=== PATIENT | female | born 1945 | race Caucasian/White ===

== ENCOUNTER 2017-01-20 19:39 | Emergency (ER) | payer MEDICARE, MEDICAID ==
--- NOTE | 2017-01-20 23:25 | CT ---
CT OF HEAD NONCONTRAST 01/20/17 CLINICAL HISTORY: Fall, occipital laceration. FINDINGS: There is parenchymal volume loss with mild compensatory dilatation of ventricular system. There is m ild chronic microvascular ischemic disease involving the cerebral white matter. Preferential cerebel lar parenchymal atrophy is present. There is no intracranial hemorrhage, mass effect or midline shif t. Scalp leny of the left occipital scalp are present. IMPRESSION: 1. No acute intracranial hemorrhage or mass effect. 2. Mild chronic ischemic disease. 3. Parenchymal atrophy preferentially involving the cerebellum. Correlate clinically. POS: [facility]
--- NOTE | 2017-01-20 23:27 | CT ---
CERVICAL SPINE CT SCAN WITHOUT IV CONTRAST: 01/20/17 HISTORY: 71-year-old female with neck pain following a fall with occipital laceration. Multilevel spondylosis including C4-C5, C5-C6, and C6-C7. No evidence for acute fracture or facet d islocation. IMPRESSION: No fracture or facet dislocation. Cervical spondylosis. Moderate atrophy in the posterior fossa, sta ble from 03/29/14 study. POS: [facility]
== END 2017-01-20 22:13 ==
LOC: MADERS 19:39
DX: S01.01XA Laceration without foreign body of scalp, initial encounter (principal); E11.9 Type 2 diabetes mellitus without complications; E78.5 Hyperlipidemia, unspecified; I12.9 Hypertensive chronic kidney disease with stage 1 through stage 4 chronic kidney disease, or unspecified chronic kidney disease; N18.3 Chronic kidney disease, stage 3 (moderate); F32.9 Major depressive disorder, single episode, unspecified; F41.9 Anxiety disorder, unspecified; Z79.82 Long term (current) use of aspirin; Z79.899 Other long term (current) drug therapy; W22.8XXA Striking against or struck by other objects, initial encounter
CPT/HCPCS: 12001; 70450; 72125

== ENCOUNTER 2017-07-04 18:13 | Emergency (ER) | payer MEDICARE, MEDICAID ==
[~2017-07-04 18:13] MED LIST: Sodium Chloride 0.9% 1,000 ML BAG ONE
[2017-07-04 18:41] LABS: Bilirubin Negative (Negative); Blood, Urine Large (Negative); Clarity Cloudy (Clear); Glucose, Urine (Dipstick) Negative (Negative); Leukocyte Large (Negative); Nitrite Negative (Negative); Protein, Urine (Dipstick) 100 mg/dL (Neg-Trace); Specific Gravity, Urine 1.025 (1.005-1.030)
[2017-07-04 18:42] LABS: INR-International Normal Ratio 1.4; PTT 40.3 SEC (22.9-36.1); Prothrombin Time 17.3 SEC (12.0-14.7)
--- NOTE | 2017-07-04 18:48 | RAD ---
CHEST ONE VIEW: 07/04/17 HISTORY: Tube placement. COMPARISON: Radiograph from 2014. FINDINGS: There is edema throughout the lungs. Left basilar air space opacity. There is an ovoid calcification projecting over the left hemithorax and abdomen, similar. Endotracheal tube tip at the level of the clavicles in good position. No pneumothorax. The heart size is enlarged. IMPRESSION: 1. Endotracheal tube tip at level of the clavicles in good position. 2. Moderate edema. 3. Left basilar air space opacity may reflect pneumonia, edema or possibly layering effusion. 4. Likely a cannula projecting over the left humeral head. POS: [facility]
[2017-07-04 18:49] LABS: Bacteria/HPF 3+ HPF (None Seen); Crystals/HPF 4+ AMORPH PHOS HPF (Negative); Squamous Epithelial 0-3 HPF (0-3)
--- NOTE | 2017-07-04 18:55 | CT ---
CT BRAIN WITHOUT CONTRAST: 07/04/17 HISTORY: Nonresponsive. COMPARISON: CT brain 01/20/17. FINDINGS: No acute territorial infarct or hemorrhage. No midline shift or mass effect. Mild atrophy. Ventricula r size and extra-axial CSF spaces are similar to the prior examination. Calvarium is intact. The paranasal sinuses and mastoids are relatively clear except for mild mucosal thickening of the mastoids. There is posterior auricular cartilage calcification on the right. IMPRESSION: No acute intracranial abnormality. No significant change. POS: [facility]
[2017-07-04 18:58] LABS: Red Blood Cell (RBC) Count 3.23 mill/uL (4.20-5.40); White Blood Cell (WBC) Count 4.7 thou/uL (4.8-10.8)
[2017-07-04 18:59] LABS: Band 32 % (5-11); Hemoglobin 9.5 g/dL (12.0-16.0); Lymphocytes 6 % (21-51); MDiff Complete? YES; Manual Diff?? YES; Mean Corpuscular HGB CONC 32.5 g/dL (32.0-36.0); Mean Corpuscular Hemoglobin 29.3 pg (27.0-31.0); Mean Corpuscular Volume 90.3 fL (81.0-99.0); Mean Platelet Volume 7.8 fL (7.4-10.4); Neutrophil 33 % (42-75); Platelet Count 160 thou/uL (130-400); RBC Distribution Width 13.1 % (11.5-14.5); Reactive Lymphocytes 24 % (0-10)
[2017-07-04 19:00] LABS: Monocytes 5 % (0-10)
[2017-07-04 19:01] LABS: PLT Morphology Comment Appears Adequate
[2017-07-04 19:02] LABS: Potassium 3.1 mmol/L (3.5-5.1); Sodium 146 mmol/L (136-145)
[2017-07-04 19:03] LABS: ALT (SGPT) 12 U/L (8-55); AST (SGOT) 44 U/L (5-34); Albumin 2.7 g/dL (3.4-4.8); Alkaline Phosphatase 38 U/L (40-150); Anion Gap 17 mmol/L (10-20); BUN (Urea Nitrogen) 45 mg/dL (9.8-20.1); Bilirubin, Total 0.4 mg/dL (0.2-1.2); Calc. Creatinine Clearance 0 mL/min (70-130); Calcium 8.5 mg/dL (7.8-10.44); Carbon Dioxide 19 mmol/L (23-31); Chloride 113 mmol/L (98-107); Estimated GFR-MDRD 28; Globulin 3.2 g/dL (2.4-3.5); Glucose 104 mg/dL (83-110); Protein, Total 5.9 g/dL (5.8-8.1)
[2017-07-04 19:05] LABS: Troponin I 0.038 ng/mL (< 0.028)
[2017-07-04 19:16] LABS: CKMB 7.7 ng/mL (0-6.6)
== END 2017-07-04 19:09 | disposition short-term general hospital (02) ==
LOC: MADERS 18:13
DX: I46.9 Cardiac arrest, cause unspecified (principal); A41.9 Sepsis, unspecified organism; D64.9 Anemia, unspecified; D72.825 Bandemia; E11.22 Type 2 diabetes mellitus with diabetic chronic kidney disease; I13.0 Hypertensive heart and chronic kidney disease with heart failure and stage 1 through stage 4 chronic kidney disease, or unspecified chronic kidney disease; I50.9 Heart failure, unspecified; N18.3 Chronic kidney disease, stage 3 (moderate); N39.0 Urinary tract infection, site not specified; E78.5 Hyperlipidemia, unspecified; F32.9 Major depressive disorder, single episode, unspecified; F41.9 Anxiety disorder, unspecified
CPT/HCPCS: 36415; 51702; 70450; 71045; 80053; 81001; 82553; 83880; 84484; 85025; 85610; 85730; 93005; J7050

== ENCOUNTER 2017-08-15 02:04 | Emergency (ER) | payer MEDICARE, MEDICAID ==
[2017-08-15 03:27] LABS: INR-International Normal Ratio 1.2; PTT 34.2 SEC (22.9-36.1); Prothrombin Time 15.5 SEC (12.0-14.7)
[2017-08-15 03:39] LABS: CKMB 0.7 ng/mL (0-6.6); Troponin I Less than 0.010 ng/mL (< 0.028)
[2017-08-15 03:44] LABS: ALT (SGPT) 7 U/L (8-55); AST (SGOT) 11 U/L (5-34); Albumin 2.6 g/dL (3.4-4.8); Alkaline Phosphatase 52 U/L (40-150); Anion Gap 15 mmol/L (10-20); BUN (Urea Nitrogen) 43 mg/dL (9.8-20.1); Bilirubin, Total Less than 0.2 mg/dL (0.2-1.2); CK (CPK) 12 U/L (29-168); Calc. Creatinine Clearance 0 mL/min (70-130); Calcium 8.3 mg/dL (7.8-10.44); Carbon Dioxide 25 mmol/L (23-31); Chloride 106 mmol/L (98-107); Estimated GFR-MDRD 66; Globulin 3.3 g/dL (2.4-3.5); Glucose 179 mg/dL (83-110); Potassium 4.5 mmol/L (3.5-5.1); Protein, Total 5.9 g/dL (6.0-8.3); Sodium 141 mmol/L (136-145)
[2017-08-15 03:53] LABS: Bilirubin Negative (Negative); Blood, Urine Negative (Negative); Glucose, Urine (Dipstick) Negative (Negative); Leukocyte Small (Negative); Nitrite Positive (Negative); Protein, Urine (Dipstick) Negative (Neg-Trace); Specific Gravity, Urine 1.015 (1.005-1.030); Urobilinogen 0.2 mg/dL (0.2-1.0)
[2017-08-15 03:59] LABS: Bacteria/HPF 4+ HPF (None Seen); Clarity Hazy (Clear); RBC/HPF None Seen HPF (0-3)
[2017-08-15 04:02] LABS: #Basophils 0.1 thou/uL (0.0-0.2); #Eosinphils 0.1 thou/uL (0.0-0.7); #Lymphocytes 1.3 thou/uL (1.20-3.40); #Monocytes 0.4 thou/uL (0.11-0.59); #Neutrophils 5.6 thou/uL (1.40-6.50); %Eosinophils 0.7 % (0.0-10.0); %Lymphocytes 17.9 % (21.0-51.0); %Monocytes 4.7 % (0.0-10.0); %Neutrophils 75.7 % (42.0-75.0); Hemoglobin 6.1 g/dL (12.0-16.0); Mean Corpuscular HGB CONC 32.9 g/dL (32.0-36.0); Mean Corpuscular Hemoglobin 27.5 pg (27.0-31.0); Mean Corpuscular Volume 83.6 fl (81.0-99.0); Mean Platelet Volume 5.2 fL (7.4-10.4); Platelet Count 422 thou/uL (130-400); RBC Distribution Width 14.4 % (11.5-14.5); Red Blood Cell (RBC) Count 2.18 mill/uL (4.20-5.40); White Blood Cell (WBC) Count 7.3 thou/uL (4.8-10.8)
[2017-08-15] MEDS ORDERED: Ciprofloxacin Lactate/D5W 400 mg/200 ml Premix ONE (04:10)
[2017-08-15] MEDS ORDERED: DOPamine 400 MG/D5W 250 ML 250 ML ONE (05:31)
[2017-08-15] MEDS ORDERED: methylPREDNISolone Sod Succ/PF 125 MG/2 ML VIAL ONE (05:31)
[2017-08-15] MEDS ORDERED: Sterile Water 10 ML ONE (05:33)
[2017-08-15] MEDS ORDERED: Sodium Chloride 0.9% 1,000 ML BAG ONE (08:13)
--- NOTE | 2017-08-15 08:50 | RAD ---
PORTABLE CHEST: DATE: 08/15/17. PROVIDED CLINICAL HISTORY: Altered mental status. FINDINGS: Comparison 07/12/17. Cardiac and mediastinal silhouette is within normal limits. No focal consolidat ion evident. The supine nature of the examination limits sensitivity for detection of pleural fluid and pneumothorax. Lucency at the right paramediastinal region likely reflects soft tissue artifact. Repeat upright examination PA and lateral may be useful for further evaluation as indicated. IMPRESSION: As above. POS: [facility]
[2017-08-15 15:40] LABS: Iron 32 ug/dL (50-170); Iron Binding Capacity, Total 266 mcg/dL (265-497)
== END 2017-08-15 08:48 | disposition short-term general hospital (02) ==
LOC: MADERS 02:04
DX: R41.82 Altered mental status, unspecified (principal); D64.9 Anemia, unspecified; E86.0 Dehydration; N39.0 Urinary tract infection, site not specified; I12.9 Hypertensive chronic kidney disease with stage 1 through stage 4 chronic kidney disease, or unspecified chronic kidney disease; E11.22 Type 2 diabetes mellitus with diabetic chronic kidney disease; N18.3 Chronic kidney disease, stage 3 (moderate); F03.90 Unspecified dementia, unspecified severity, without behavioral disturbance, psychotic disturbance, mood disturbance, and anxiety; E78.5 Hyperlipidemia, unspecified; F39 Unspecified mood [affective] disorder; F32.9 Major depressive disorder, single episode, unspecified; F41.9 Anxiety disorder, unspecified
CPT/HCPCS: 36415; 36430; 51702; 71045; 80053; 81001; 82553; 82728; 83540; 83550; 83605; 83880; 84484; 85025; 85610; 85730; 86850; 86900; 86901; 87040; 87077; 87081; 87086; 87186; 87430; 87804; 93005; 94760; 96361; 96365; 96366; 96375; A4216; A4353; J0744; J1265; J2930; J7050; P9016

== ENCOUNTER 2018-02-23 18:28 | Emergency (ER) | payer MEDICARE, OTHER ==
[2018-02-23] MEDS ORDERED: Lidocaine-Prilocaine 2.5% Cream 5 GM TUBE ONE (18:44)
[2018-02-23] MEDS ORDERED: TETANUS AND DIPHTHERIA TOX/PF 0.5 ML DISP.SYRIN ONE (19:31)
--- NOTE | 2018-02-23 20:38 | CT ---
CT OF THE BRAIN WITHOUT CONTRAST: 02/23/18 INDICATION: History of scalp laceration. FINDINGS: There is a scalp laceration involving the posterior midline parietal scalp. No definite acute infarct , hemorrhage or hydrocephalus is evident. There is generalized cerebral and cerebellar atrophy. There is mild chronic small vessel white matter ischemic change. Mastoid air cells are clear. The paranasa l sinuses are clear. The skull is intact. IMPRESSION: 1. No acute intracranial abnormality. 2. Posterior midline parietal scalp laceration. POS: [facility]
[2018-02-23] MEDS ORDERED: Sterile Water Irrigation 250 ML BOT ONE (23:36)
== END 2018-02-23 21:26 ==
LOC: MADERS 18:28
DX: S01.01XA Laceration without foreign body of scalp, initial encounter (principal); E11.9 Type 2 diabetes mellitus without complications; G40.909 Epilepsy, unspecified, not intractable, without status epilepticus; F41.9 Anxiety disorder, unspecified; F32.9 Major depressive disorder, single episode, unspecified; E78.5 Hyperlipidemia, unspecified; I12.9 Hypertensive chronic kidney disease with stage 1 through stage 4 chronic kidney disease, or unspecified chronic kidney disease; N18.3 Chronic kidney disease, stage 3 (moderate); Z79.899 Other long term (current) drug therapy; Z79.4 Long term (current) use of insulin; W22.8XXA Striking against or struck by other objects, initial encounter
CPT/HCPCS: 12001; 70450; 90471

== ENCOUNTER 2019-05-10 11:47 | Emergency (ER) | payer MEDICAID, MEDICARE, OTHER ==
--- NOTE | 2019-05-10 12:14 | RAD ---
EXAM: Single view of the chest HISTORY: Cough COMPARISON: 08/15/2017 FINDINGS: Single view of the chest shows a normal sized cardiomediastinal silhouette. There is no dina dence of consolidation, mass, or pleural effusion. The bones are unremarkable. IMPRESSION: No evidence of acute cardiopulmonary disease
== END 2019-05-10 14:57 ==
LOC: MADERS 11:47
DX: K13.0 Diseases of lips (principal); E78.5 Hyperlipidemia, unspecified; E11.22 Type 2 diabetes mellitus with diabetic chronic kidney disease; I12.9 Hypertensive chronic kidney disease with stage 1 through stage 4 chronic kidney disease, or unspecified chronic kidney disease; N18.3 Chronic kidney disease, stage 3 (moderate); F41.9 Anxiety disorder, unspecified; F32.9 Major depressive disorder, single episode, unspecified; Z79.4 Long term (current) use of insulin; Z79.899 Other long term (current) drug therapy
CPT/HCPCS: 71045

== ENCOUNTER 2019-06-12 10:13 | Emergency (ER) | payer MEDICARE, OTHER ==
--- NOTE | 2019-06-12 10:45 | CT ---
CT HEAD WITHOUT IV CONTRAST COMPARISON: 02/23/2018 HISTORY: Right-sided weakness TECHNIQUE: Axial CT imaging at 5 mm intervals from vertex through skull base without contrast FINDINGS: There is a low-density area seen in the right temporal lobe which may represent a late subacute to ch ronic infarction. Low-density area is also seen within the right anterior frontal lobe predominantly within the white matter most likely related to remote ischemic event.. Again noted is d iminished attenuation in the periventricular white matter which is nonspecific but likely reflective of chronic small vessel ischemic changes. Cerebral and cerebellar volume loss are again no annabella. The ventricular system is normal in size, shape, and position. Mucosal thickening is seen in the ethmoidal air cells bilaterally greater on the left with minimal mu cosal thickening in each sphenoid sinus. Osseous structures appear intact. IMPRESSION: 1. 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 2. Chronic small vessel ischemic changes. 3. Cerebral and cerebellar volume loss..
--- NOTE | 2019-06-12 10:51 | RAD ---
EXAM: CHEST ONE VIEW HISTORY: Altered mental status COMPARISON: 05/10/2019 FINDINGS: Cardiac silhouette is within normal limits for portable technique. There is mild increase in perihila r interstitial densities bilaterally. No consolidation or pleural fluid is seen. Breast calcifications are seen in the thoracic aorta. There is a large rounded calcified lesion overlying th e left upper quadrant which was also seen on prior one view abdomen on 08/16/2017. The osseous structures are intact. IMPRESSION: Mild nonspecific prominence of the perihilar interstitial densities. This may be related to technique . Element of mild pulmonary edema or infectious process cannot be entirely excluded.
[2019-06-12 11:07] LABS: Bilirubin Negative (Negative); Blood, Urine Small (Negative); Clarity Slightly Cloudy (Clear); Glucose, Urine (Dipstick) Negative (Negative); Leukocyte Large (Negative); Nitrite Positive (Negative); Protein, Urine (Dipstick) Trace mg/dL (Neg-Trace); Urobilinogen 0.2 mg/dL (Less than 2)
[2019-06-12 11:23] LABS: #Basophils 0.1 thou/uL (0.0-0.2); #Lymphocytes 1.5 thou/uL (1.20-3.40); #Monocytes 0.5 thou/uL (0.11-0.59); #Neutrophils 6.2 thou/uL (1.40-6.50); %Basophils 0.9 % (0.0-1.0); %Eosinophils 0.4 % (0.0-10.0); %Lymphocytes 17.7 % (21.0-51.0); %Monocytes 6.2 % (0.0-10.0); %Neutrophils 74.9 % (42.0-75.0); Hemoglobin 14.3 g/dL (12.0-16.0); Mean Corpuscular HGB CONC 31.2 g/dL (32.0-36.0); Mean Corpuscular Hemoglobin 26.8 pg (27.0-31.0); Mean Corpuscular Volume 86.1 fL (78.0-98.0); Mean Platelet Volume 6.9 fL (7.4-10.4); Platelet Count 197 thou/uL (130-400); RBC Distribution Width 12.7 % (11.5-14.5); Red Blood Cell (RBC) Count 5.33 mill/uL (4.20-5.40); White Blood Cell (WBC) Count 8.3 thou/uL (4.8-10.8)
[2019-06-12 11:28] LABS: WBC/HPF Greater Than 50 HPF (0-3)
[2019-06-12 11:29] LABS: Bacteria/HPF 4+ HPF (None Seen); Squamous Epithelial None Seen HPF (0-3)
[2019-06-12] MEDS ORDERED: Aspirin 300 MG Suppository ONE (11:45)
[2019-06-12] MEDS ORDERED: Sodium Chloride 0.9% 1,000 ML ONE (11:45)
[2019-06-12] MEDS ORDERED: cefTRIAXone\\ROCEPHIN 2 GM VIAL ONE (11:45)
[2019-06-12] MEDS ORDERED: Sodium Chloride 0.9% 100 ML ONE (11:45)
== END 2019-06-12 13:55 | disposition short-term general hospital (02) ==
LOC: MADERS 10:13
DX: I63.9 Cerebral infarction, unspecified (principal); N39.0 Urinary tract infection, site not specified; I12.9 Hypertensive chronic kidney disease with stage 1 through stage 4 chronic kidney disease, or unspecified chronic kidney disease; E11.22 Type 2 diabetes mellitus with diabetic chronic kidney disease; N18.3 Chronic kidney disease, stage 3 (moderate); E78.5 Hyperlipidemia, unspecified; F39 Unspecified mood [affective] disorder; F41.9 Anxiety disorder, unspecified; F32.9 Major depressive disorder, single episode, unspecified; F03.90 Unspecified dementia, unspecified severity, without behavioral disturbance, psychotic disturbance, mood disturbance, and anxiety
CPT/HCPCS: 36415; 51701; 70450; 71045; 81003; 81015; 82550; 83605; 84484; 85025; 87040; 87077; 87086; 87186; 93005; 96365; A4353; J0696; J3490; J7050

== ENCOUNTER 2019-12-05 10:44 | Emergency (ER) | payer MEDICARE, MEDICAID, OTHER ==
--- NOTE | 2019-12-05 11:15 | RAD ---
Portable frontal chest radiograph: 12/05/2019 COMPARISON: 11/24/2019 HISTORY: Cough FINDINGS: There is new dense opacity in the right suprahilar region and right hilar region. There is new reticulonodular density with associated groundglass opacity within the left perihilar region, the right upper lobe, and the left lung base. New increased density in the right perihilar and suprah ilar region is likely on the basis of airspace disease. Underlying adenopathy or mass cannot be excluded. No pneumothorax. No pleural effusion. IMPRESSION: Interval development of extensive interstitial and alveolar opacity. Findings are suspici ous for multi lobar infectious pneumonitis. This could include atypical infectious process, such as Covid 19. Short-term follow-up imaging of the chest following treatment advised.
[2019-12-05 11:30] LABS: #Basophils 0.1 thou/uL (0.0-0.2); #Lymphocytes 2.1 thou/uL (1.20-3.40); #Monocytes 0.7 thou/uL (0.11-0.59); #Neutrophils 9.2 thou/uL (1.40-6.50); %Basophils 0.6 % (0.0-1.0); %Eosinophils 0.4 % (0.0-10.0); %Lymphocytes 17.6 % (21.0-51.0); %Monocytes 5.4 % (0.0-10.0); Hemoglobin 9.5 g/dL (12.0-16.0); Mean Corpuscular HGB CONC 31.8 g/dL (32.0-36.0); Mean Corpuscular Volume 81.7 fL (78.0-98.0); Mean Platelet Volume 6.1 fL (7.4-10.4); Platelet Count 578 thou/uL (130-400); RBC Distribution Width 15.8 % (11.5-14.5); Red Blood Cell (RBC) Count 3.66 mill/uL (4.20-5.40); White Blood Cell (WBC) Count 12.1 thou/uL (4.8-10.8)
[2019-12-05] MEDS ORDERED: Ibuprofen 600 MG TAB ONE (11:31)
[2019-12-05] MEDS ORDERED: Dexamethasone 10 MG/ML VIAL ONE (11:31)
[2019-12-05] MEDS ORDERED: cefTRIAXone\\ROCEPHIN 1 GM VIAL ONE (11:31)
[2019-12-05] MEDS ORDERED: Sodium Chloride 0.9% 100 ML ONE (11:31)
[2019-12-05 11:44] LABS: ALT (SGPT) 19 U/L (8-55); AST (SGOT) 31 U/L (5-34); Albumin 2.7 g/dL (3.4-4.8); Alkaline Phosphatase 151 U/L (40-110); Anion Gap 17 mmol/L (10-20); BUN (Urea Nitrogen) 18 mg/dL (9.8-20.1); Bilirubin, Total 0.2 mg/dL (0.2-1.2); Calc. Creatinine Clearance 0 mL/min (70-130); Calcium 8.2 mg/dL (7.8-10.44); Carbon Dioxide 23 mmol/L (23-31); Chloride 92 mmol/L (98-107); Estimated GFR-MDRD 74; Globulin 4.6 g/dL (2.4-3.5); Glucose 328 mg/dL (83-110); Potassium 4.9 mmol/L (3.5-5.1); Protein, Total 7.3 g/dL (6.0-8.3); Sodium 127 mmol/L (136-145)
[2019-12-05 12:34] LABS: Bilirubin Negative (Negative); Blood, Urine Negative (Negative); Clarity Clear (Clear); Glucose, Urine (Dipstick) 100 mg/dL (Negative); Ketone, Urine Trace mg/dL (Negative); Leukocyte Negative (Negative); Nitrite Negative (Negative); Protein, Urine (Dipstick) 100 mg/dL (Neg-Trace); Specific Gravity, Urine 1.015 (1.005-1.030); Urobilinogen 0.2 mg/dL (Less than 2)
[2019-12-05 12:40] LABS: Bacteria/HPF Rare-Few HPF (None Seen); RBC/HPF 0-3 HPF (0-3); Squamous Epithelial 0-3 HPF (0-3); WBC/HPF 0-3 HPF (0-3)
[2019-12-05] MEDS ORDERED: Azithromycin 500 MG VIAL ONE (13:03)
[2019-12-05] MEDS ORDERED: Sodium Chloride 0.9% 250 ML 250 ML ONE (13:04)
== END 2019-12-05 13:40 | disposition short-term general hospital (02) ==
LOC: MADERS 10:44
DX: R05 Cough (principal); R50.9 Fever, unspecified; Z20.828 Contact with and (suspected) exposure to other viral communicable diseases; D64.9 Anemia, unspecified; E87.1 Hypo-osmolality and hyponatremia; I12.9 Hypertensive chronic kidney disease with stage 1 through stage 4 chronic kidney disease, or unspecified chronic kidney disease; N18.3 Chronic kidney disease, stage 3 (moderate); E11.22 Type 2 diabetes mellitus with diabetic chronic kidney disease; E78.5 Hyperlipidemia, unspecified; F41.9 Anxiety disorder, unspecified; F32.9 Major depressive disorder, single episode, unspecified
CPT/HCPCS: 36415; 71045; 80053; 81003; 81015; 83605; 83880; 84484; 85025; 87040; 87077; 87086; 87149; 87186; 93005; 94760; 96361; 96365; 96367; 96375; J0456; J0696; J1100; J3490; J7050